=== PATIENT | female | born 1955 | race Caucasian/White ===

== ENCOUNTER 2016-11-18 14:33 | Emergency (ER) | payer OTHER ==
[~2016-11-18] VITALS: Ht 157.4 cm; Wt 68.0 kg
[~2016-11-18 14:33] MED LIST: ANTIVERT25 MG PO; BENADRYL25 MG PO; BUSPAR15 MG PO; CYCLOBENZAPRINE10 MG PO; HYDR12.5C PO; HYDRODIURIL25 MG PO; INDERAL LA160 MG PO; LAMICTAL150 MG PO; LYRICA25 M1 PO; LYRICA75 MG PO; MOTRIN800 MG PO; NEXIUM40 MG PO; NORFLEX100 MG PO; NORVASC10 MG PO; NORVASC5 MG PO; PERCOCET 325 MG1 TA7 PO; PROPOXYPHENE PO; RISPERDAL4 MG PO; SYNTHROID0.025 MG PO; TORADOL10 MG PO; VICODIN 5/500 505 MG PO; VICODIN ES 7501 TAB PO; VITAMIN D1000 IU PO; WELLBUTRIN SR150 MG PO; ZOLOFT100 MG PO
[2016-11-18 14:38] VITALS: BP 153/80
[2016-11-18 15:24] LABS: BASO % 0.3 % (0.0-1.0); EOS # 0.2 10*3/uL (0.0-0.4); EOS % 1.7 % (1.0-4.0); HEMATOCRIT 34.1 % (37.0-47.0); HEMOGLOBIN 11.4 g/dl (12.0-16.0); LYMPH # 1.8 10*3/uL (1.3-4.4); LYMPH % 18.3 % (27.0-41.0); MEAN CELL VOLUME 97.4 fl (81.0-99.0); MEAN CORPUSCULAR HGB 32.6 pg (27.0-31.0); MEAN CORPUSCULAR HGB CONC 33.4 g/dl (33.0-37.0); MEAN PLATELET VOLUME 9.7 fl (9.6-12.3); MONO # 0.5 10*3/uL (0.1-1.0); MONO % 4.9 % (3.0-9.0); NEUT # 7.4 10*3/uL (2.3-7.9); NEUT % 73.9 % (47.0-73.0); PLATELET COUNT AUTOMATED 178 10*3/uL (130-400); RED CELL DISTRI WIDTH 14.6 % (0-14.5)
[2016-11-18 15:41] LABS: ALBUMIN 2.9 gm/dl (3.1-4.5); ALKALINE PHOSPHATASE 133 U/L (45-117); BUN 20 mg/dl (7-24); CHLORIDE 106 mmol/L (98-107); CREATININE 3.08 mg/dL (0.55-1.02); POTASSIUM 3.7 mmol/L (3.5-5.1); SGOT/AST 15 IU/L (3-35); SGPT/ALT 13 U/L (12-78); SODIUM 141 mmol/L (136-145); TOTAL PROTEIN 6.8 gm/dL (6.4-8.2)
[2016-11-18 15:42] LABS: TROPONIN I < 0.015 ng/ml (<0.045)
[2016-11-18] MEDS ORDERED: PREDNISONE10 MG PO (16:55)
[2016-11-18] MEDS ORDERED: DOXYCYCLINE100 M3 PO (16:55)
== END 2016-11-18 17:03 | disposition home or self-care (01) ==
LOC: ED 14:33
PROVIDERS: Internal Medicine
DX: J40 Bronchitis, not specified as acute or chronic (principal); F17.200 Nicotine dependence, unspecified, uncomplicated; Z88.1 Allergy status to other antibiotic agents; Z88.6 Allergy status to analgesic agent

== ENCOUNTER → 2017-05-31 | Outpatient (CLI) | payer OTHER ==
[~2017-05-31] MED LIST changes: +DOXYCYCLINE100 M3 PO; +PREDNISONE10 MG PO
[2017-05-31 11:58] LABS: CREATININE 2.74 mg/dL (0.55-1.02); POTASSIUM 4.1 mmol/L (3.5-5.1); TOTAL PROTEIN 7.4 gm/dL (6.4-8.2)
== END | disposition home or self-care (01) ==
LOC: LAB 11:22
PROVIDERS: Nurse Practitioner Family
DX: E87.2 Acidosis (principal)

== ENCOUNTER 2017-10-09 21:54 | Emergency (ER) | payer OTHER ==
[~2017-10-09] VITALS: Ht 157.4 cm; Wt 68.0 kg
[2017-10-09 21:58] VITALS: BP 177/66
== END 2017-10-09 23:00 | disposition home or self-care (01) ==
LOC: ED 21:54
DX: G43.909 Migraine, unspecified, not intractable, without status migrainosus (principal); Z90.710 Acquired absence of both cervix and uterus; Z98.890 Other specified postprocedural states; Z88.8 Allergy status to other drugs, medicaments and biological substances; Z88.1 Allergy status to other antibiotic agents; Z88.6 Allergy status to analgesic agent; Z79.899 Other long term (current) drug therapy

== ENCOUNTER 2017-12-25 22:47 | Emergency (ER) | payer OTHER ==
[2017-12-25 22:49] VITALS: BP 160/90
[2017-12-26 00:07] LABS: BASO # 0.1 10*3/uL (0.0-0.1); BASO % 0.6 % (0.0-1.0); EOS # 0.3 10*3/uL (0.0-0.4); HEMATOCRIT 35.2 % (37.0-47.0); HEMOGLOBIN 11.4 g/dl (12.0-16.0); LYMPH # 2.5 10*3/uL (1.3-4.4); LYMPH % 24.7 % (27.0-41.0); MEAN CELL VOLUME 97.2 fl (81.0-99.0); MEAN CORPUSCULAR HGB 31.5 pg (27.0-31.0); MEAN CORPUSCULAR HGB CONC 32.4 g/dl (33.0-37.0); MEAN PLATELET VOLUME 9.6 fl (9.6-12.3); MONO # 0.6 10*3/uL (0.1-1.0); MONO % 6.1 % (3.0-9.0); NEUT # 6.5 10*3/uL (2.3-7.9); NEUT % 65.3 % (47.0-73.0); PLATELET COUNT AUTOMATED 194 10*3/uL (130-400); RED BLOOD COUNT 3.62 10*6/uL (4.10-5.10); RED CELL DISTRI WIDTH 14.2 % (0-14.5); WHITE BLOOD COUNT 9.9 10*3/uL (4.8-10.8)
[2017-12-26 00:22] LABS: ALBUMIN 3.1 gm/dl (3.1-4.5); CREATININE 3.01 mg/dL (0.55-1.02); TOTAL PROTEIN 6.6 gm/dL (6.4-8.2)
== END 2017-12-26 01:17 | disposition home or self-care (01) ==
LOC: ED 22:47
PROVIDERS: Nurse Practitioner
DX: I88.9 Nonspecific lymphadenitis, unspecified (principal); N18.9 Chronic kidney disease, unspecified; F17.200 Nicotine dependence, unspecified, uncomplicated; Z90.710 Acquired absence of both cervix and uterus; Z79.899 Other long term (current) drug therapy; Z88.8 Allergy status to other drugs, medicaments and biological substances; Z88.5 Allergy status to narcotic agent; Z88.1 Allergy status to other antibiotic agents; Z88.6 Allergy status to analgesic agent

== ENCOUNTER → 2018-02-07 | Outpatient (CLI) | payer OTHER | END | disposition home or self-care (01) | LOC: US 16:35 | DX: M54.2 Cervicalgia (principal); R22.1 Localized swelling, mass and lump, neck ==

== ENCOUNTER 2018-07-28 16:51 | Emergency (ER) | payer OTHER ==
[~2018-07-28] VITALS: Ht 157.4 cm; Wt 77.1 kg
[2018-07-28 16:51] VITALS: BP 214/106
[2018-07-28] MEDS ORDERED: INDERAL LA120 M1 PO (16:58)
[2018-07-28] MEDS ORDERED: OMEPRAZOLE40 MG PO (16:59)
[2018-07-28] MEDS ORDERED: DIOVAN80 M1 PO (16:59)
[2018-07-28] MEDS ORDERED: B12,B-12,B 12500 MC1 PO (17:00)
== END 2018-07-28 19:00 | disposition left against medical advice (07) ==
LOC: ED 16:51
DX: M25.511 Pain in right shoulder (principal); Z79.899 Other long term (current) drug therapy; Z88.6 Allergy status to analgesic agent; Z88.8 Allergy status to other drugs, medicaments and biological substances; Z91.018 Allergy to other foods; Z98.890 Other specified postprocedural states; W17.89XA Other fall from one level to another, initial encounter; Y93.89 Activity, other specified; Y92.89 Other specified places as the place of occurrence of the external cause; Y99.8 Other external cause status

== ENCOUNTER 2019-04-02 18:17 | Emergency (ER) | payer OTHER ==
[~2019-04-02] VITALS: Wt 77.1 kg
[~2019-04-02 18:17] MED LIST changes: +B12,B-12,B 12500 MC1 PO; +DIOVAN80 M1 PO; +INDERAL LA120 M1 PO; +OMEPRAZOLE40 MG PO
[2019-04-02 18:49] LABS: BASO # 0.1 10*3/uL (0.0-0.1); BASO % 0.5 % (0.0-1.0); EOS # 0.3 10*3/uL (0.0-0.4); EOS % 2.2 % (1.0-4.0); HEMATOCRIT 34.1 % (37.0-47.0); HEMOGLOBIN 10.9 g/dl (12.0-16.0); LYMPH # 2.2 10*3/uL (1.3-4.4); LYMPH % 17.6 % (27.0-41.0); MEAN CELL VOLUME 93.7 fl (81.0-99.0); MEAN CORPUSCULAR HGB 29.9 pg (27.0-31.0); MEAN PLATELET VOLUME 9.8 fl (9.6-12.3); MONO # 0.8 10*3/uL (0.1-1.0); MONO % 6.1 % (3.0-9.0); NEUT # 9.1 10*3/uL (2.3-7.9); NEUT % 73.2 % (47.0-73.0); PLATELET COUNT AUTOMATED 195 10*3/uL (130-400); RED BLOOD COUNT 3.64 10*6/uL (4.10-5.10); RED CELL DISTRI WIDTH 13.6 % (0-14.5); WHITE BLOOD COUNT 12.5 10*3/uL (4.8-10.8)
[2019-04-02 18:59] LABS: ACT PARTIAL THROMBO TIME 29.6 SECONDS (20.0-32.1); INTERNATIONAL NORM RATIO 0.9 (2.0-3.5)
[2019-04-02 19:07] LABS: ALBUMIN 3.6 gm/dl (3.1-4.5); CREATININE 4.47 mg/dL (0.55-1.02); POTASSIUM 5.3 mmol/L (3.5-5.1); TOTAL PROTEIN 7.7 gm/dL (6.4-8.2)
[2019-04-02 19:10] LABS: TROPONIN I 0.195 ng/ml (<0.045)
[2019-04-02 21:15] VITALS: BP 135/72
== END 2019-04-02 21:17 | disposition short-term general hospital (02) ==
LOC: ED 18:17
PROVIDERS: Emergency Medicine
DX: I21.4 Non-ST elevation (NSTEMI) myocardial infarction (principal); K21.9 Gastro-esophageal reflux disease without esophagitis; M79.7 Fibromyalgia; M81.0 Age-related osteoporosis without current pathological fracture; G43.B0 Ophthalmoplegic migraine, not intractable; I12.9 Hypertensive chronic kidney disease with stage 1 through stage 4 chronic kidney disease, or unspecified chronic kidney disease; N18.9 Chronic kidney disease, unspecified; Z98.61 Coronary angioplasty status; Z88.8 Allergy status to other drugs, medicaments and biological substances; Z88.5 Allergy status to narcotic agent; Z88.1 Allergy status to other antibiotic agents; Z79.899 Other long term (current) drug therapy; Z90.710 Acquired absence of both cervix and uterus; Z90.49 Acquired absence of other specified parts of digestive tract

== ENCOUNTER 2020-09-19 04:23 | Inpatient (IN) | payer OTHER ==
[~2020-09-19] VITALS: Ht 165.1 cm; Wt 92.0 kg
[2020-09-19] VITALS (11 sets, daily range): BP systolic 105–225; BP diastolic 37–191
[~2020-09-19 04:23] MED LIST changes: -INDERAL LA120 M1 PO; +PROPRANOLOL HCL80 M1 PO
[2020-09-19 04:46] LABS: BASO # 0.1 10*3/uL (0.0-0.1); BASO % 0.6 % (0.0-1.0); EOS # 0.5 10*3/uL (0.0-0.4); EOS % 2.4 % (1.0-4.0); HEMATOCRIT 33.3 % (37.0-47.0); LYMPH # 3.5 10*3/uL (1.3-4.4); LYMPH % 16.7 % (27.0-41.0); MEAN CELL VOLUME 102.8 fl (81.0-99.0); MEAN CORPUSCULAR HGB 30.9 pg (27.0-31.0); MEAN PLATELET VOLUME 9.5 fl (9.6-12.3); MONO # 0.9 10*3/uL (0.1-1.0); MONO % 4.5 % (3.0-9.0); NEUT # 15.8 10*3/uL (2.3-7.9); NEUT % 74.9 % (47.0-73.0); PLATELET COUNT AUTOMATED 342 10*3/uL (130-400); RED BLOOD COUNT 3.24 10*6/uL (4.10-5.10); RED CELL DISTRI WIDTH 16.8 % (0-14.5)
[2020-09-19 05:04] LABS: ALBUMIN 3.4 gm/dl (3.1-4.5); CREATININE 4.87 mg/dL (0.55-1.02); POTASSIUM 5.4 mmol/L (3.5-5.1); TOTAL PROTEIN 7.7 gm/dL (6.4-8.2)
[2020-09-19 05:07] LABS: TROPONIN I 0.128 ng/ml (<0.045)
[2020-09-19] MEDS ORDERED: ROCALTROL0.25 MC2 PO (12:02)
[2020-09-19] MEDS ORDERED: ZOLOFT50 MG PO (12:02)
[2020-09-19] MEDS ORDERED: ZETIA10 MG PO (12:03)
[2020-09-19] MEDS ORDERED: ASPIRIN ADULT L81 M2 PO (12:03)
[2020-09-19] MEDS ORDERED: SEROQUEL25 MG PO (12:04)
[2020-09-19] MEDS ORDERED: VISTARIL25 M2 PO (12:05)
[2020-09-19] MEDS ORDERED: LOKELMA5 GM PO (12:06)
[2020-09-19] MEDS ORDERED: RENAGEL800 M1 PO (12:06)
[2020-09-19] MEDS ORDERED: CRESTOR5 MG PO (12:07)
[2020-09-19] MEDS ORDERED: NIFEDIPINE30 MG PO (12:07)
[2020-09-19] MEDS ORDERED: Imdur SA60 MG PO (12:08)
[2020-09-19] MEDS ORDERED: NITROSTAT0.4 MG SL (12:08)
[2020-09-19] MEDS ORDERED: SINGULAIR10 M1 PO (12:08)
[2020-09-19] MEDS ORDERED: Ondansetron4 MG PO (12:09)
[2020-09-19] MEDS ORDERED: GOOD NEIGHBOR500 M2 PO (12:10)
[2020-09-20] VITALS (20 sets, daily range): BP systolic 60–145; BP diastolic 22–58
[2020-09-20 06:19] LABS: ALBUMIN 2.9 gm/dl (3.1-4.5); TOTAL PROTEIN 6.4 gm/dL (6.4-8.2)
[2020-09-20 06:25] LABS: THYROID STIM HORMONE (HS) 1.41 uIU/ml (0.358-4.75)
[2020-09-20 06:32] LABS: BASO % 0.3 % (0.0-1.0); EOS # 0.1 10*3/uL (0.0-0.4); EOS % 1.3 % (1.0-4.0); HEMATOCRIT 23.7 % (37.0-47.0); MEAN CORPUSCULAR HGB 30.3 pg (27.0-31.0); MEAN CORPUSCULAR HGB CONC 30.4 g/dl (33.0-37.0); MEAN PLATELET VOLUME 9.7 fl (9.6-12.3); MONO # 0.7 10*3/uL (0.1-1.0); MONO % 8.4 % (3.0-9.0); NEUT # 6.1 10*3/uL (2.3-7.9); NEUT % 76.6 % (47.0-73.0); RED BLOOD COUNT 2.38 10*6/uL (4.10-5.10); RED CELL DISTRI WIDTH 16.9 % (0-14.5)
[2020-09-20 06:44] LABS: ACT PARTIAL THROMBO TIME 47.4 SECONDS (20.0-32.1); INTERNATIONAL NORM RATIO 1.2 (2.0-3.5)
[2020-09-20 07:42] LABS: MEAN CELL VOLUME 99.6 fl (81.0-99.0)
[2020-09-20 07:43] LABS: PLATELET COUNT AUTOMATED 148 10*3/uL (130-400)
[2020-09-20 08:08] LABS: BASO % 0.2 % (0.0-1.0); EOS # 0.1 10*3/uL (0.0-0.4); EOS % 1.2 % (1.0-4.0); HEMATOCRIT 24.8 % (37.0-47.0); MEAN CORPUSCULAR HGB 30.8 pg (27.0-31.0); MEAN CORPUSCULAR HGB CONC 31.5 g/dl (33.0-37.0); MONO # 0.6 10*3/uL (0.1-1.0); MONO % 7.4 % (3.0-9.0); NEUT # 6.7 10*3/uL (2.3-7.9); NEUT % 78.6 % (47.0-73.0); PLATELET COUNT AUTOMATED 151 10*3/uL (130-400); RED BLOOD COUNT 2.53 10*6/uL (4.10-5.10); RED CELL DISTRI WIDTH 16.8 % (0-14.5); WHITE BLOOD COUNT 8.5 10*3/uL (4.8-10.8)
[2020-09-21] VITALS: BP 110/45
[2020-09-21 04:00] VITALS: BP 113/61
[2020-09-21 06:07] LABS: BASO % 0.5 % (0.0-1.0); EOS # 0.2 10*3/uL (0.0-0.4); EOS % 2.4 % (1.0-4.0); HEMATOCRIT 23.1 % (37.0-47.0); LYMPH # 1.3 10*3/uL (1.3-4.4); LYMPH % 15.7 % (27.0-41.0); MEAN CELL VOLUME 98.3 fl (81.0-99.0); MEAN CORPUSCULAR HGB 30.6 pg (27.0-31.0); MEAN CORPUSCULAR HGB CONC 31.2 g/dl (33.0-37.0); MEAN PLATELET VOLUME 9.9 fl (9.6-12.3); MONO # 0.6 10*3/uL (0.1-1.0); MONO % 7.2 % (3.0-9.0); NEUT # 6.1 10*3/uL (2.3-7.9); NEUT % 73.8 % (47.0-73.0); PLATELET COUNT AUTOMATED 146 10*3/uL (130-400); RED BLOOD COUNT 2.35 10*6/uL (4.10-5.10); WHITE BLOOD COUNT 8.2 10*3/uL (4.8-10.8)
[2020-09-21 06:08] LABS: ALBUMIN 3.1 gm/dl (3.1-4.5); TOTAL PROTEIN 6.5 gm/dL (6.4-8.2)
[2020-09-21 08:00] VITALS: BP 101/45
[2020-09-21 12:00] VITALS: BP 96/51
[2020-09-21 16:00] VITALS: BP 93/34
[2020-09-21 20:00] VITALS: BP 123/58
[2020-09-22] VITALS (13 sets, daily range): BP systolic 108–153; BP diastolic 35–94
[2020-09-22 06:13] LABS: ALBUMIN 3.3 gm/dl (3.1-4.5); CREATININE 3.84 mg/dL (0.55-1.02); POTASSIUM 3.6 mmol/L (3.5-5.1); TOTAL PROTEIN 6.8 gm/dL (6.4-8.2)
[2020-09-22 06:33] LABS: BASO % 0.5 % (0.0-1.0); EOS # 0.2 10*3/uL (0.0-0.4); EOS % 2.2 % (1.0-4.0); HEMATOCRIT 24.5 % (37.0-47.0); LYMPH # 1.4 10*3/uL (1.3-4.4); LYMPH % 16.9 % (27.0-41.0); MEAN CELL VOLUME 97.2 fl (81.0-99.0); MEAN CORPUSCULAR HGB 30.2 pg (27.0-31.0); MEAN PLATELET VOLUME 10.1 fl (9.6-12.3); MONO # 0.6 10*3/uL (0.1-1.0); MONO % 7.3 % (3.0-9.0); NEUT # 5.9 10*3/uL (2.3-7.9); NEUT % 72.6 % (47.0-73.0); PLATELET COUNT AUTOMATED 188 10*3/uL (130-400); RED BLOOD COUNT 2.52 10*6/uL (4.10-5.10); RED CELL DISTRI WIDTH 16.7 % (0-14.5); WHITE BLOOD COUNT 8.1 10*3/uL (4.8-10.8)
[2020-09-22 18:58] LABS: BASO % 0.5 % (0.0-1.0); EOS # 0.1 10*3/uL (0.0-0.4); EOS % 1.7 % (1.0-4.0); LYMPH # 1.1 10*3/uL (1.3-4.4); LYMPH % 14.7 % (27.0-41.0); MEAN CELL VOLUME 95.2 fl (81.0-99.0); MEAN CORPUSCULAR HGB 30.6 pg (27.0-31.0); MEAN CORPUSCULAR HGB CONC 32.1 g/dl (33.0-37.0); MEAN PLATELET VOLUME 9.5 fl (9.6-12.3); MONO # 0.6 10*3/uL (0.1-1.0); MONO % 8.1 % (3.0-9.0); NEUT # 5.6 10*3/uL (2.3-7.9); NEUT % 74.7 % (47.0-73.0); PLATELET COUNT AUTOMATED 184 10*3/uL (130-400); RED BLOOD COUNT 2.94 10*6/uL (4.10-5.10); RED CELL DISTRI WIDTH 16.3 % (0-14.5); WHITE BLOOD COUNT 7.5 10*3/uL (4.8-10.8)
[2020-09-23] VITALS: BP 127/49
[2020-09-23 06:22] LABS: BASO # 0.1 10*3/uL (0.0-0.1); BASO % 0.6 % (0.0-1.0); EOS # 0.2 10*3/uL (0.0-0.4); EOS % 2.1 % (1.0-4.0); LYMPH # 1.4 10*3/uL (1.3-4.4); LYMPH % 18.4 % (27.0-41.0); MEAN CELL VOLUME 95.2 fl (81.0-99.0); MEAN CORPUSCULAR HGB 30.3 pg (27.0-31.0); MEAN CORPUSCULAR HGB CONC 31.8 g/dl (33.0-37.0); MEAN PLATELET VOLUME 9.6 fl (9.6-12.3); MONO # 0.6 10*3/uL (0.1-1.0); MONO % 8.2 % (3.0-9.0); NEUT # 5.5 10*3/uL (2.3-7.9); NEUT % 70.3 % (47.0-73.0); PLATELET COUNT AUTOMATED 179 10*3/uL (130-400); RED BLOOD COUNT 2.94 10*6/uL (4.10-5.10); RED CELL DISTRI WIDTH 16.6 % (0-14.5); WHITE BLOOD COUNT 7.8 10*3/uL (4.8-10.8)
[2020-09-23 06:40] LABS: ALBUMIN 3.3 gm/dl (3.1-4.5); CREATININE 5.26 mg/dL (0.55-1.02); POTASSIUM 3.4 mmol/L (3.5-5.1)
[2020-09-23 06:43] LABS: INTERNATIONAL NORM RATIO 1.1 (2.0-3.5)
[2020-09-23 06:49] LABS: ACT PARTIAL THROMBO TIME 68.6 SECONDS (20.0-32.1)
[2020-09-23 08:00] VITALS: BP 116/52
== END 2020-09-23 09:53 | disposition other institution (70) | DRG 871 ==
LOC: ED 04:23 → EDHOLD 09:08 → ICCU 09:08 → EDHOLD 09:39 → ICCU 11:06 → 5E 09-22 17:25
PROVIDERS: Internal Medicine; Social Worker Clinical; ADMIT Internal Medicine; ATTEND Internal Medicine
PROC: 5A09357 Assistance with Respiratory Ventilation, Less than 24 Consecutive Hours, Continuous Positive Airway Pressure (ICD-10-PCS; principal; 2020-09-19)
PROC: 30233N1 Transfusion of Nonautologous Red Blood Cells into Peripheral Vein, Percutaneous Approach (ICD-10-PCS; 2020-09-22)
DX: A41.9 Sepsis, unspecified organism (principal); I21.4 Non-ST elevation (NSTEMI) myocardial infarction; N18.6 End stage renal disease; J96.01 Acute respiratory failure with hypoxia; I50.33 Acute on chronic diastolic (congestive) heart failure; J15.6 Pneumonia due to other Gram-negative bacteria; E44.0 Moderate protein-calorie malnutrition; R65.20 Severe sepsis without septic shock; D53.9 Nutritional anemia, unspecified; E87.5 Hyperkalemia; E11.65 Type 2 diabetes mellitus with hyperglycemia; E87.8 Other disorders of electrolyte and fluid balance, not elsewhere classified; E11.22 Type 2 diabetes mellitus with diabetic chronic kidney disease; I25.118 Atherosclerotic heart disease of native coronary artery with other forms of angina pectoris; K21.9 Gastro-esophageal reflux disease without esophagitis; Z87.891 Personal history of nicotine dependence; Z99.2 Dependence on renal dialysis; Z95.5 Presence of coronary angioplasty implant and graft; Z88.8 Allergy status to other drugs, medicaments and biological substances; Z88.2 Allergy status to sulfonamides; Z88.6 Allergy status to analgesic agent; Z90.710 Acquired absence of both cervix and uterus; Z79.82 Long term (current) use of aspirin; Z79.899 Other long term (current) drug therapy; Z79.1 Long term (current) use of non-steroidal anti-inflammatories (NSAID); Z90.49 Acquired absence of other specified parts of digestive tract; Z82.49 Family history of ischemic heart disease and other diseases of the circulatory system; Z88.5 Allergy status to narcotic agent

== ENCOUNTER → 2021-04-14 | Outpatient (CLI) | payer OTHER ==
[~2021-04-14] MED LIST changes: +ASPIRIN ADULT L81 M2 PO; +CRESTOR5 MG PO; +GOOD NEIGHBOR500 M2 PO; +Imdur SA60 MG PO; +LOKELMA5 GM PO; +NIFEDIPINE30 MG PO; +NITROSTAT0.4 MG SL; +Ondansetron4 MG PO; +RENAGEL800 M1 PO; +ROCALTROL0.25 MC2 PO; +SEROQUEL25 MG PO; +SINGULAIR10 M1 PO; +VISTARIL25 M2 PO; +ZETIA10 MG PO; +ZOLOFT50 MG PO
== END | disposition home or self-care (01) ==
LOC: COVID19 15:16
PROVIDERS: ATTEND Student in an Organized Health Care Education/Training Program
DX: Z20.822 Contact with and (suspected) exposure to COVID-19 (principal)

== ENCOUNTER 2022-02-06 11:11 | Emergency (ER) | payer OTHER ==
[~2022-02-06] VITALS: Ht 157.4 cm
[2022-02-06 11:34] VITALS: BP 124/44
== END 2022-02-06 14:47 | disposition home or self-care (01) ==
LOC: ED 11:11
DX: S93.601A Unspecified sprain of right foot, initial encounter (principal); Z88.1 Allergy status to other antibiotic agents; Z88.8 Allergy status to other drugs, medicaments and biological substances; Z79.899 Other long term (current) drug therapy; Z79.82 Long term (current) use of aspirin; Z90.89 Acquired absence of other organs; Z90.49 Acquired absence of other specified parts of digestive tract; Z90.710 Acquired absence of both cervix and uterus; Z98.890 Other specified postprocedural states; X58.XXXA Exposure to other specified factors, initial encounter; Y93.89 Activity, other specified; Y92.89 Other specified places as the place of occurrence of the external cause; Y99.8 Other external cause status